=== PATIENT | male | born 1970 | race Caucasian/White ===

== ENCOUNTER → 2021-06-04 | Outpatient (CLI) | payer BC ==
--- NOTE | 2021-06-04 11:57 | RAD ---
Three view lumbosacral spine History: Pain AP, coned-down lateral and lateral views of the lumbosacral spine were obtained. The vertebral bodies are aligned. There is no loss of vertebral body stature. There is mild loss of i ntervertebral disc height at L5-S1. There is minimal marginal spurring of endplates at L3-S1. Impression: No acute findings. End Impression Electronically signed by: Alex Oliveira III, MD (06/04/2021 11:54 AM) [facility]
== END ==
LOC: RAD 09:20
PROVIDERS: ATTEND Family Medicine
DX: M51.37 Other intervertebral disc degeneration, lumbosacral region (principal)
CPT/HCPCS: 72100